=== PATIENT | male | born 1950 | race Asian ===

== ENCOUNTER 2017-01-28 21:46 | Emergency (ER) | payer OTHER ==
[~2017-01-28] VITALS: Ht 170.2 cm; Wt 87.1 kg
--- NOTE | ~2017-01-28 | EKG ---
[address] [address] ELECTROCARDIOGRAM REPORT Name: BETO MCGUIRE Room #: [facility]#: [id number] Admission: 01/28/17 Attend Phys: Discharge: 01/29/17 Date of : 46 Report #: [id number] THIS REPORT FOR: //name// [facility] ED Test Date: 2017-01-28 Test Time: 21:56:52 Pat Name: BETO MCGUIRE Department: Room: Gender: Chief Mate: ERIN : 1950 Requested By: Ash Salinas Order Number: [id number] MD: Chidi Fink Measurements Intervals [place] Rate: 91 P: RI: QRS: 26 QRSD: 85 T: 47 QT: 360 QTc: 443 Interpretive Statements Sinus rhythm Nonspecific ST and T wave abnormality Compared to ECG 02/21/2016 07:11:29 Nonspecific change in the ST and T-wave segments Electronically Signed On 01-29-2017 8:02:33 CDT by Chidi Fink [email or web address] <ELECTRONICALLY SIGNED> By: Chidi Fink MD, [facility] 01/29/17 [phone] Chidi Fink MD, [facility] /EPI
[~2017-01-28 21:46] MED LIST: ASPIR 8181 MG PO; LIPITOR80 MG PO; LISINOPRIL10 MG PO; METFORMIN HCL500 MG PO; VITAMIN D 5050000 I1 PO; ZANTAC 150MG T150 MG PO
[2017-01-28 22:22] LABS: HEMATOCRIT 45.8 % (42.0-52.0); HEMOGLOBIN 15.7 gm/dL (14.0-18.0); MANUAL DIFF YES; MCH 30.3 pg (26.0-34.0); MCHC 34.2 g/dL (28.0-37.0); MCV 88.6 fL (80.0-100.0); PLATELET COUNT 182 thou/uL (150-400); RBC 5.17 mil/uL (4.50-6.00); RDW 13.9 % (10.5-14.5); WBC 8.3 thou/uL (4.0-11.0)
[2017-01-28 22:31] LABS: ANION GAP 7 mmol/L (7-16); BUN 12 mg/dL (7-18); CALCIUM 9.8 mg/dL (8.5-10.1); CHLORIDE 101 mmol/L (98-107); CO2 29 mmol/L (21-32); CREATININE 1.1 mg/dL (0.7-1.3); GLUCOSE 118 mg/dL (74-106); POTASSIUM 4.2 mmol/L (3.5-5.1); SODIUM 137 mmol/L (136-145)
[2017-01-28 22:37] LABS: ALKALINE PHOSPHATASE 539 U/L (46-116); DIRECT BILIRUBIN 1.6 mg/dL (<0.1-0.3); SGOT 255 U/L (15-37); SGPT 258 U/L (30-65); TROPONIN-I < 0.04 ng/mL (<0.04-0.07)
[2017-01-28 22:49] LABS: ABSOLUTE NEUTROPHILS 7.4 thou/uL (1.4-8.2); TOTAL CELL COUNT 100
[2017-01-28 22:51] LABS: ANISOCYTOSIS 1+
[2017-01-29] MEDS ORDERED: ZOFRAN ODT4 MG PO (01:06)
[2017-01-29] MEDS ORDERED: NORCO 5-325 TA1 EACH PO (01:06)
[2017-01-29] MEDS ORDERED: PRILOSEC OTC20 MG PO (01:06)
[2017-01-29 01:11] VITALS: BP 135/57
== END 2017-01-29 01:21 | disposition home or self-care (01) ==
LOC: ER 21:46
PROVIDERS: Emergency Medicine
DX: R10.13 Epigastric pain (principal); R79.89 Other specified abnormal findings of blood chemistry; K21.9 Gastro-esophageal reflux disease without esophagitis; Z87.442 Personal history of urinary calculi; Z95.5 Presence of coronary angioplasty implant and graft; Z95.1 Presence of aortocoronary bypass graft